=== PATIENT | male | born 1945 | race Hispanic/Latino ===

== ENCOUNTER 2019-11-13 15:19 | Observation (INO) | payer OTHER ==
--- OUTSIDE RECORDS SUMMARY | 2019-11-13 15:21 | XMS REPORT ---
:1945 Author Organization [facility] Address [address] [place] [address] Care Team Providers Name Role Phone TASHA LYLE Unavailable Unavailable Problems This patient has no known problems. Allergies, Adverse Reactions, Alerts This patient has no known allergies or adverse reactions. Medications This patient has no known medications. Results Test Description Test Time Test Comments Text Results Atomic Results Result Comments POCT-GLUCOSE METER 2017-11-21 11:29:00 Test Item Value Reference Range Comments POC-GLUCOSE METER (BEAKER) (test 325 mg/dL 70-110 TESTED AT [facility] [address], [place] wpgj=[id number]) [facility] [id number] POCT-GLUCOSE [id number] 07:37:00 Test Item Value Reference Range Comments POC-GLUCOSE METER (BEAKER) 134 mg/dL 70-110 TESTED AT [facility] [address] [place] (test fwit=2764) [facility] [address] [id number] 04:53:00 Test Item Value Reference Range Comments BLOOD UREA NITROGEN (BEAKER) (test grxj=527) 40 mg/dL 7-21 [id number] 04:53:00 Test Item Value Reference Range Comments SODIUM (BEAKER) (test pude=872) 138 meq/L 136-145 POTASSIUM (BEAKER) (test vjzq=628) 5.0 meq/L 3.5-5.1 CHLORIDE (BEAKER) (test gchd=563) 106 meq/L 98-107 CO2 (BEAKER) (test mybq=978) 23 meq/L 22-29 [id number] 04:53:00 Test Item Value Reference Range Comments CREATININE (BEAKER) (test 1.81 mg/dL 0.57-1.25 askb=255) EGFR (BEAKER) (test 37 mL/min/1.73 sq m ESTIMATED GFR IS NOT xbtm=3988) ACCURATE CREATININE CLEARANCE IN PREDICTING GLOMERULAR FILTRATION RATE. ESTIMATED GFR IS NOT APPLICABLE FOR DIALYSIS PATIENTS. POCT-GLUCOSE [id number] 22:29:00 Test Item Value Reference Range Comments POC-GLUCOSE METER ([facility]) 156 mg/dL 70-110 TESTED AT [address] (test giix=0827) [place] [address] HEMOGLOBIN AND [id number] 18:49:00 Test Item Value Reference Range Comments HEMOGLOBIN ([facility]) (test bktd=608) 10.4 GM/DL 13.7-17.5 HEMATOCRIT ([facility]) (test tsiy=200) 32.1 % 40.1-51.0 POCT-GLUCOSE [id number] 16:14:00 Test Item Value Reference Range Comments POC-GLUCOSE METER ([facility]) 167 mg/dL 70-110 TESTED AT [address] (test tlns=2371) [place] [address] [id number] 14:38:00 Test Item Value Reference Range Comments ACTIVATED CLOTTING TIME 164 sec TESTED AT [address] ([facility]) (test lyue=271) [place] [address] [id number] 13:42:00 Test Item Value Reference Range Comments ACTIVATED CLOTTING TIME 169 sec TESTED AT [address] ([facility]) (test szhy=142) [place] [address] [id number] 12:54:00 Test Item Value Reference Range Comments ACTIVATED CLOTTING TIME 307 sec TESTED AT [address] ([facility]) (test nmnr=589) [place] [address] [id number] 12:54:00 Test Item Value Reference Range Comments ACTIVATED CLOTTING TIME 312 sec TESTED AT [address] ([facility]) (test jbey=521) [place] [address] [id number] 11:45:00 Test Item Value Reference Range Comments ACTIVATED CLOTTING TIME 301 sec TESTED AT [address] ([facility]) (test vscd=998) [place] [address] [id number] 11:45:00 Test Item Value Reference Range Comments ACTIVATED CLOTTING TIME 307 sec TESTED AT [address] ([facility]) (test ynjk=717) [place] [address] [id number] 11:45:00 Test Item Value Reference Range Comments ACTIVATED CLOTTING TIME 301 sec TESTED AT [place] [address] [facility] (BEAKER) (test cbax=327) [place] [id number] 11:45:00 Test Item Value Reference Range Comments ACTIVATED CLOTTING TIME 312 sec TESTED AT [place] [address] [facility] (BEAKER) (test skcl=687) [place] [address] [id number] 11:45:00 Test Item Value Reference Range Comments ACTIVATED CLOTTING TIME 268 sec TESTED AT [address] (BEAKER) (test zzjk=350) [place] [address] [id number] 11:45:00 Test Item Value Reference Range Comments ACTIVATED CLOTTING TIME 202 sec TESTED AT [address] (BEAKER) (test psvj=956) [place] [address] PROTHROMBIN [id number] 06:50:00 Test Item Value Reference Range Comments PROTIME ([facility]) (test ende=372) 13.8 seconds 11.7-14.7 INR ([facility]) (test hosx=515) 1.1 <=5.9 RECOMMENDED COUMADIN/WARFARIN INR THERAPY RANGESSTANDARD DOSE: 2.0 - 3.0 Includes: PROPHYLAXIS forvenous thrombosis, systemic embolization; TREATMENT for venous thrombosis and/or pulmonary embolus.HIGH RISK: Target INR is 2.5-3.5 for patients with mechanical heart valves.[id number] 06:50:00 Test Item Value Reference Range Comments PARTIAL THROMBOPLASTIN TIME (BEAKER) (test 28.6 seconds 22.5-36.0 otfs=451) COMPREHENSIVE METABOLIC [id number] 06:45:00 Test Item Value Reference Range Comments TOTAL PROTEIN (BEAKER) 7.8 gm/dL 6.0-8.3 (test pyla=794) ALBUMIN (BEAKER) (test 4.0 g/dL 3.5-5.0 zdrw=9987) ALKALINE PHOSPHATASE 122 U/L 40-150 (BEAKER) (test apwz=682) BILIRUBIN TOTAL (BEAKER) 0.4 mg/dL 0.2-1.2 (test kauo=803) SODIUM (BEAKER) (test 138 meq/L 136-145 rpts=523) POTASSIUM (BEAKER) (test 5.4 meq/L 3.5-5.1 ykqg=149) CHLORIDE (BEAKER) (test 100 meq/L 98-107 tvix=263) CO2 (BEAKER) (test 27 meq/L 22-29 rvom=644) BLOOD UREA NITROGEN 55 mg/dL 7-21 (BEAKER) (test fhxh=813) CREATININE (BEAKER) (test 2.39 mg/dL 0.57-1.25 ibty=514) GLUCOSE RANDOM (BEAKER) 252 mg/dL 70-105 (test ufld=421) CALCIUM (BEAKER) (test 9.7 mg/dL 8.4-10.2 clza=432) AST (SGOT) (BEAKER) (test 19 U/L 5-34 tvfp=685) ALT (SGPT) (BEAKER) (test 25 U/L 6-55 snng=594) EGFR (BEAKER) (test 27 mL/min/1.73 sq m ESTIMATED GFR IS NOT jsqy=3290) ACCURATE CREATININE CLEARANCE IN PREDICTING GLOMERULAR FILTRATION RATE. ESTIMATED GFR IS NOT APPLICABLE FOR DIALYSIS PATIENTS. [id number] 06:44:00 Test Item Value Reference Range Comments MAGNESIUM (BEAKER) (test kifs=147) 2.4 mg/dL 1.6-2.6 CBC W/PLT COUNT & AUTO [id number] 06:40:00 Test Item Value Reference Range Comments WHITE BLOOD CELL COUNT (BEAKER) (test ojdh=419) 8.0 K/ L 3.5-10.5 RED BLOOD CELL COUNT (BEAKER) (test cysy=626) 3.66 M/ L 4.63-6.08 HEMOGLOBIN (BEAKER) (test urox=562) 11.1 GM/DL 13.7-17.5 HEMATOCRIT (BEAKER) (test ucqv=231) 34.1 % 40.1-51.0 MEAN CORPUSCULAR VOLUME (BEAKER) (test tdbs=224) 93.2 fL 79.0-92.2 MEAN CORPUSCULAR HEMOGLOBIN (BEAKER) (test 30.3 pg 25.7-32.2 rtuy=030) MEAN CORPUSCULAR HEMOGLOBIN CONC (BEAKER) (test 32.6 GM/DL 32.3-36.5 ddvx=897) RED CELL DISTRIBUTION WIDTH (BEAKER) (test 14.3 % 11.6-14.4 zpjf=164) PLATELET COUNT (BEAKER) (test fsob=837) 191 K/CU MM 150-450 MEAN PLATELET VOLUME (BEAKER) (test nomy=850) 10.6 fL 9.4-12.4 NUCLEATED RED BLOOD CELLS (BEAKER) (test 0 /100 WBC 0-0 iimy=575) NEUTROPHILS RELATIVE PERCENT (BEAKER) (test 56 % mtul=324) LYMPHOCYTES RELATIVE PERCENT (BEAKER) (test 35 % dwgz=600) MONOCYTES RELATIVE PERCENT (BEAKER) (test 7 % axvk=102) EOSINOPHILS RELATIVE PERCENT (BEAKER) (test 1 % vzey=045) BASOPHILS RELATIVE PERCENT (BEAKER) (test 1 % imgm=485) NEUTROPHILS ABSOLUTE COUNT (BEAKER) (test 4.47 K/ L 1.78-5.38 ziil=650) LYMPHOCYTES ABSOLUTE COUNT (BEAKER) (test 2.82 K/ L 1.32-3.57 emtg=044) MONOCYTES ABSOLUTE COUNT (BEAKER) (test 0.54 K/ L 0.30-0.82 bruz=067) EOSINOPHILS ABSOLUTE COUNT (BEAKER) (test 0.09 K/ L 0.04-0.54 pzsa=011) BASOPHILS ABSOLUTE COUNT (BEAKER) (test 0.04 K/ L 0.01-0.08 modv=252) IMMATURE GRANULOCYTES-RELATIVE PERCENT (BEAKER) 1 % 0-1 (test kmto=0216)
[2019-11-13 16:01] LABS: Absolute Lymphocytes (CBC) 1.9 K/uL (0.7-4.9); Basophils % 0.4 % (0-1.3); Hematocrit 34.1 % (39.6-49.0); Lymphocytes % 30.2 % (15.3-44.8); MPV 8.5 fL (7.6-11.3); RBC Red Blood Cell Count 3.87 M/uL (4.33-5.43)
[2019-11-13 16:06] LABS: Protime INR 1.08
[2019-11-13 16:23] LABS: ALT/SGPT 17 U/L (12-78); AST/SGOT 18 U/L (15-37); Albumin 2.4 g/dL (3.4-5.0); Alkaline Phosphatase 159 U/L (45-117); BUN Blood Urea Nitrogen 27 mg/dL (7-18); Bicarbonate 23 mmol/L (21-32); Bilirubin Direct 0.1 mg/dL (0-0.2); Bilirubin Total 0.4 mg/dL (0.2-1.0); Glucose Level 184 mg/dL (74-106); NT PRO-BNP 10828 pg/mL (<125); Potassium 4.2 mmol/L (3.5-5.1); Protein, Total 6.8 g/dL (6.4-8.2); Sodium Level 139 mmol/L (136-145); Troponin (Emerg Dept Use Only) < 0.02 ng/mL (0.0-0.045)
--- NOTE | 2019-11-13 16:25 | RAD REPORT ---
EXAM DESCRIPTION: RAD - Chest Single View - 11/13/2019 4:04 pm CLINICAL HISTORY: Pneumonia, Possible defibrillation COMPARISON: November 07 TECHNIQUE: AP portable chest image was obtained 11/13/2019 4:04 pm . FINDINGS: Lung volumes are low. Bibasilar interstitial and alveolar opacities are still present. Rig ht costophrenic angle blunting has developed. Heart size is normal. Vasculature is mildly prominent. No measurable pleural effusion and no pneumothorax. No acute bony abnormality seen. No acute aortic f inding. Left subclavian Port-A-Cath is in place. Pacemaker/defibrillator in place on the right. IMPRESSION: Bibasilar pneumonia pattern similar to November 07 Increase in vasculature and overall lung markings could indicate a failure or volume overload compone nt.
--- NOTE | 2019-11-13 17:16 | EDPHYS ---
Physician Documentation [facility] Name: Rick Zheng Age: 74 yrs Sex: Male : 1945 Arrival Date: 11/13/2019 Time: 15:21 Bed 2 Private MD: ELIZABETH Physician Bin Garza HPI: 11/12 15:36 This 74 yrs old Male presents to ER via Wheelchair with complaints of Defib pm1 Problem. 15:36 Onset: at 03:00, Patient felt sensation of a shock to his left chest. Patient believes pm1 that his defibrillator fired off one time while he was sleeping. Associated signs and symptoms: Pertinent positives: cough, shortness of breath, for the past two weeks. Was diagnosed with pneumonia by his PCP and prescribed levaquin, Pertinent negatives: abdominal pain, headache, lightheadedness, nausea, near syncope, palpitations, vomiting, current chest pain. Modifying factors: The symptoms are alleviated by nothing. the symptoms are aggravated by nothing. The patient has not experienced similar symptoms in the past. The patient has been recently seen by a physician: the patient's primary care provider, for cough and shortness of breath and diagnosed with pneumonia after chest xray. Historical: - Allergies: 15:38 No Known Allergies; sv - Home Meds: 15:38 Levaquin 500 mg Oral tab 1 tab once daily [Active]; torsemide 20 mg oral tab 1 tab once sv daily [Active]; amiodarone 200 mg Oral tab 1 tab once daily [Active]; spironolactone 25 mg Oral tab 1 tab once daily [Active]; atorvastatin 40 mg oral tab 1 tab once daily [Active]; aspirin 81 mg Oral TbEC 1 tab once daily [Active]; lisinopril 5 mg Oral tab 1 tab once daily [Active]; metoprolol succinate 100 mg oral Tb24 1 tab once daily [Active]; 16:00 chemotherapy [Active]; sv - PMHx: 15:38 CVA; Myocardial infarction; sv 16:00 Pancreatic and stomach cancer; sv - PSHx: 15:38 Pacemaker; Triple bypass; Heart stents; sv - Immunization history:: Adult Immunizations up to date. - Social history:: Smoking status: Patient denies any tobacco usage or history of. ROS: 16:00 Constitutional: Negative for fever, chills, and weight loss, Eyes: Negative for injury, pm1 pain, redness, and discharge, ENT: Negative for injury, pain, and discharge, Neck: Negative for injury, pain, and swelling, Abdomen/GI: Negative for abdominal pain, nausea, vomiting, diarrhea, and constipation, Back: Negative for injury and pain. 16:00 MS/Extremity: Negative for injury and deformity, Skin: Negative for injury, rash, and discoloration, Neuro: Negative for headache, weakness, numbness, tingling, and seizure. 16:00 Cardiovascular: Positive for shock from defibrillator, Negative for chest pain, edema, orthopnea, palpitations. 16:00 Respiratory: Positive for cough, shortness of breath. Exam: 16:00 Constitutional: This is a well developed, well nourished patient who is awake, alert, pm1 and in no acute distress. Head/Face: Normocephalic, atraumatic. Neck: Trachea midline, no thyromegaly or masses palpated, and no cervical lymphadenopathy. Supple, full range of motion without nuchal rigidity, or vertebral point tenderness. No Meningismus. Chest/axilla: Normal chest wall appearance and motion. Nontender with no deformity. No lesions are appreciated. Cardiovascular: Regular rate and rhythm with a normal S1 and S2. No gallops, murmurs, or rubs. No pulse deficits. Respiratory: Lungs have equal breath sounds bilaterally, clear to auscultation and percussion. No rales, rhonchi or wheezes noted. No increased work of breathing, no retractions or nasal flaring. Abdomen/GI: Soft, non-tender, with normal bowel sounds. No distension or tympany. No guarding or rebound. No evidence of tenderness throughout. Back: No spinal tenderness. No costovertebral tenderness. Full range of motion. Skin: Warm, dry with normal turgor. Normal color with no rashes, no lesions, and no evidence of cellulitis. MS/ Extremity: Pulses equal, no cyanosis. Neurovascular intact. Full, normal range of motion. 16:00 Neuro: Orientation: is normal, Mentation: is normal, Motor: is normal. Vital Signs: 15:34 BP 151 / 77; Pulse 80; Resp 16; Temp 98; Pulse Ox 95% ; Pain 0/10; sv 16:01 Pulse Ox 91% on R/A; sv 16:03 BP 134 / 57; Pulse 80; Resp 16; Pulse Ox 95% on 3 lpm NC; sv 16:45 BP 119 / 49; Pulse 80; Resp 16; Pulse Ox 95% on 3 lpm NC; sv 17:30 BP 128 / 62; Pulse 72; Resp 15; Pulse Ox 99% on 3 lpm NC; hb 18:30 BP 142 / 63; Pulse 64; Resp 17; Pulse Ox 98% on 3 lpm NC; hb 19:14 BP 114 / 69; Pulse 80; Resp 17; Temp 98.3; Pulse Ox 99% on 3 lpm NC; Pain 0/10; rr5 20:10 BP 141 / 70; Pulse 78; Resp 16; Pulse Ox 99% on 3 lpm NC; rr5 16:01 Placed on O2 \T\ 3L per NC. sv MDM: 15:29 Patient medically screened. rajeev 16:00 Data reviewed: vital signs. pm1 17:00 Counseling: I had a detailed discussion with the patient and/or guardian regarding: the pm1 historical points, exam findings, and any diagnostic results supporting the discharge/admit diagnosis, lab results, radiology results, the need for further work-up and treatment in the hospital. 17:11 Physician consultation: Ajay Newman was called at 17:12, was contacted at 17:12, pm1 regarding admission, patient's condition, and will see patient in ED. 17:16 ED course: Patient's family members determined that his pacemaker/defibrillator is pm1 [employer] brand. 17:54 ED course: [employer] sales promotion representative called. Said he will come tomorrow morning pm1 to interrogate the defibrillator since the patient has been admitted. 11/12 15:36 Order name: Basic Metabolic Panel; Complete Time: 16:24 pm1 11/12 15:36 Order name: CBC with Diff; Complete Time: 16:16 pm1 11/12 15:36 Order name: LFT's; Complete Time: 16:24 pm1 11/12 15:36 Order name: Magnesium; Complete Time: 16:24 pm1 11/12 15:36 Order name: NT PRO-BNP; Complete Time: 16:24 pm1 11/12 15:36 Order name: PT-INR; Complete Time: 16:24 pm1 11/12 15:36 Order name: Troponin (emerg Dept Use Only); Complete Time: 16:24 pm1 11/12 15:36 Order name: XRAY Chest (1 view); Complete Time: 16:28 pm1 11/12 15:36 Order name: EKG; Complete Time: 15:37 pm1 11/12 15:36 Order name: Cardiac monitoring; Complete Time: 15:38 pm1 11/12 15:36 Order name: EKG - Nurse/Tech; Complete Time: 16:05 pm1 11/12 15:36 Order name: IV Saline Lock; Complete Time: 15:38 pm1 11/12 15:36 Order name: Labs collected and sent; Complete Time: 16:05 pm1 11/12 15:38 Order name: Flu; Complete Time: 16:24 pm1 11/12 15:36 Order name: O2 Per Protocol; Complete Time: 15:38 pm1 11/12 15:36 Order name: O2 Sat Monitoring; Complete Time: 15:38 pm1 Administered Medications: No medications were administered Disposition: 11/13 09:44 Co-signature as Attending Physician, Bin Garza MD I agree with the assessment and [facility] plan of care. Disposition: 11/13/19 17:15 Hospitalization ordered by Ajay Newman for Observation. Preliminary diagnosis are Encounter for adjustment and management of automatic implantable cardiac defibrillator - Defibrillator discharge, Pneumonia, unspecified organism. - Bed requested for Telemetry/MedSurg (observation). - Status is Observation. rr5 - Condition is Stable. - Problem is new. - Symptoms have improved. Signatures: Dispatcher [employer] EDDorcas Eng RN RN sv Woody, Diana, RN RN dw Anderson, Corey, MD MD cha Marinas, Patrick, LIVESTOCK LABORER LIVESTOCK LABORER pm1 Ralph Carter RN RN rr5 Corrections: (The following items were deleted from the chart) 11/12 19: 17:15 Hospitalization Ordered by Ajay Newman for Observation. Preliminary diagnosis dw is Encounter for adjustment and management of automatic implantable cardiac defibrillator - Defibrillator dischargePneumonia, unspecified organism. Bed requested for Telemetry/MedSurg (observation). Status is Observation. Condition is Stable. Problem is new. Symptoms have improved. pm1 20:21 19:07 11/13/2019 17:15 Hospitalization Ordered by Ajay Newman for Observation. rr5 Preliminary diagnosis is Encounter for adjustment and management of automatic implantable cardiac defibrillator - Defibrillator dischargePneumonia, unspecified organism. Bed requested for Telemetry/MedSurg (observation). Status is Observation. Condition is Stable. Problem is new. Symptoms have improved. dw
--- NOTE | 2019-11-13 17:16 | ER ---
Nurse's Notes [facility] Name: Rick Zheng Age: 74 yrs Sex: Male : 1945 Arrival Date: 11/13/2019 Time: 15:21 Bed 2 Private MD: Diagnosis: Pneumonia, unspecified organism;Encounter for adjustment and management of automatic implantable cardiac defibrillator-Defibrillator discharge Presentation: 11/12 15:34 Chief complaint: Patient states: "I got shocked by this box (pointing to the pacemaker sv in his right chest wall) this morning." Reports generalized weakness and was dx w/ pneumonia about 4 days ago and has been on abx. Coronavirus screen: The patient has NOT traveled to a country currently being monitored by the [facility] [place] 2[place] within the last 14 days. Proceed with normal triage procedures. The patient has NOT had contact with any known and/or suspected case of coronavirus. Proceed with normal triage procedures. Ebola Screen: Patient negative for fever greater than or equal to 101.5 degrees Fahrenheit, and additional compatible Ebola Virus Disease symptoms Patient denies exposure to infectious person. Patient denies travel to an Ebola-affected area in the 21 days before illness onset. No symptoms or risks identified at this time. Initial Sepsis Screen: Does the patient meet any 2 criteria? No. Patient's initial sepsis screen is negative. Does the patient have a suspected source of infection? No. Patient's initial sepsis screen is negative. Risk Assessment: Do you want to hurt yourself or someone else? Patient reports no desire to harm self or others. 15:34 Method Of Arrival: Wheelchair sv 15:34 Acuity: KELVIN 3 sv 15:45 Onset of symptoms was November 13, 2019. sv Triage Assessment: 15:34 General: Appears in no apparent distress. comfortable, well developed, Behavior is sv calm, cooperative, appropriate for age. Pain: Denies pain. Neuro: Level of Consciousness is awake, alert, obeys commands, Oriented to person, place, time, situation, Moves all extremities. Full function Gait is steady, Speech is normal, Reports weakness. Cardiovascular: Patient's skin is warm and dry. Pulses are palpable in right radial artery and left radial artery Rhythm is A-V sequential pacer with capture. Respiratory: Airway is patent Respiratory effort is even, unlabored, Respiratory pattern is regular, symmetrical. Derm: Skin is intact, Skin is pink, warm \\T\\ dry. Musculoskeletal: Range of motion: intact in all extremities. Historical: - Allergies: 15:38 No Known Allergies; sv - Home Meds: 15:38 Levaquin 500 mg Oral tab 1 tab once daily [Active]; torsemide 20 mg oral tab 1 tab once sv daily [Active]; amiodarone 200 mg Oral tab 1 tab once daily [Active]; spironolactone 25 mg Oral tab 1 tab once daily [Active]; atorvastatin 40 mg oral tab 1 tab once daily [Active]; aspirin 81 mg Oral TbEC 1 tab once daily [Active]; lisinopril 5 mg Oral tab 1 tab once daily [Active]; metoprolol succinate 100 mg oral Tb24 1 tab once daily [Active]; 16:00 chemotherapy [Active]; sv - PMHx: 15:38 CVA; Myocardial infarction; sv 16:00 Pancreatic and stomach cancer; sv - PSHx: 15:38 Pacemaker; Triple bypass; Heart stents; sv - Immunization history:: Adult Immunizations up to date. - Social history:: Smoking status: Patient denies any tobacco usage or history of. Screenin:00 Abuse screen: Denies threats or abuse. Denies injuries from another. Nutritional sv screening: No deficits noted. Tuberculosis screening: No symptoms or risk factors identified. Fall Risk None identified. Assessment: 16:03 Reassessment: Patient appears in no apparent distress at this time. No changes from previously documented assessment. Patient and/or family updated on plan of care and expected duration. Pain level reassessed. Patient is alert, oriented x 3, equal unlabored respirations, skin warm/dry/pink. 17:10 Reassessment: Son was able to get the device that is for his pacemaker. Celiro latitude communicator is the device; model 6290. 17:14 Reassessment: Spoke with Theresa with [employer] at and she sv stated that she would page out a sales representative livestock. 17:32 Reassessment: Dr Newman at the bedside. sv 18:47 Reassessment: Patient appears in no apparent distress at this time. Patient and/or hb family updated on plan of care and expected duration. Pain level reassessed. Patient is alert, oriented x 3, equal unlabored respirations, skin warm/dry/pink. Awaiting room assignment at this time. Pt is resting with eyes closed, easily arouses to verbal stimuli. VSS. Family remains at bedside. 19:30 General: Appears in no apparent distress. comfortable, Behavior is calm, cooperative, rr5 appropriate for age, for transfer to room .405 . Pain: Denies pain. Neuro: Level of Consciousness is awake, alert, obeys commands, Oriented to person, place, time, situation, Appropriate for age. Cardiovascular: Denies chest pain, Capillary refill < 3 seconds Patient's skin is warm and dry. Respiratory: Airway is patent Respiratory effort is even, unlabored, Respiratory pattern is regular, symmetrical. GI: No signs and/or symptoms were reported involving the gastrointestinal system. : No signs and/or symptoms were reported regarding the genitourinary system. EENT: No signs and/or symptoms were reported regarding the EENT system. Derm: Skin is intact, is healthy with good turgor, Skin temperature is warm. Musculoskeletal: Circulation, motion, and sensation intact. Capillary refill < 3 seconds. Vital Signs: 15:34 BP 151 / 77; Pulse 80; Resp 16; Temp 98; Pulse Ox 95% ; Pain 0/10; sv 16:01 Pulse Ox 91% on R/A; sv 16:03 BP 134 / 57; Pulse 80; Resp 16; Pulse Ox 95% on 3 lpm NC; sv 16:45 BP 119 / 49; Pulse 80; Resp 16; Pulse Ox 95% on 3 lpm NC; sv 17:30 BP 128 / 62; Pulse 72; Resp 15; Pulse Ox 99% on 3 lpm NC; hb 18:30 BP 142 / 63; Pulse 64; Resp 17; Pulse Ox 98% on 3 lpm NC; hb 19:14 BP 114 / 69; Pulse 80; Resp 17; Temp 98.3; Pulse Ox 99% on 3 lpm NC; Pain 0/10; rr5 20:10 BP 141 / 70; Pulse 78; Resp 16; Pulse Ox 99% on 3 lpm NC; rr5 16:01 Placed on O2 \\T\\ 3L per NC. sv ED Course: 15:21 Patient arrived in ED. rg4 15:29 [facility]. pm1 15:29 Bin Garza MD is Attending Physician. pm1 15:33 Duque, Princess, RN is Primary Nurse. ph 15:34 Dorcas Amador, RN is Primary Nurse. sv 15:34 Arm band placed on Patient placed in an exam room, on a stretcher, on bus driver/monitor, sv on pulse oximetry. 15:35 Triage completed. sv 15:45 Patient has correct armband on for positive identification. Placed in gown. Bed in low sv position. Call light in reach. Adult w/ patient. monitor technician on. Pulse ox on. NIBP on. Door closed. Head of bed elevated. 15:52 Initial lab(s) drawn, by me, sent to lab. Accessed Port-a-Cath. using accessed w/ # 20 hb [place] needle, ,sterile technique, per hospital protocol. Good blood return. Flushes easily. 16:05 XRAY Chest (1 view) In Process Unspecified. EDMS 16:05 XRAY Chest (1 view) Sent. sv 17:02 Awaiting re-evaluation by ER provider. sv 17:13 Ajay Newman is Hospitalizing Provider. pm1 19:11 Report given to Dominic SEBASTIAN and Ralph SEBASTIAN. sv 19:12 Primary Nurse role handed off by Dorcas Amador, ROMULO sv 19:14 Ralph Carter, ROMULO is Primary Nurse. rr5 19:24 No provider procedures requiring assistance completed. Patient admitted, IV remains in rr5 place. intact, No redness/swelling at site. Administered Medications: No medications were administered Outcome: 17:15 Decision to Hospitalize by Provider. pm1 19:53 Admitted to Tele accompanied by tech, via stretcher, room 405, with chart, Report rr5 called to coreen 19:53 Condition: stable 19:53 Instructed on the need for admit. 20:21 Patient left the ED. rr5 Signatures: Dispatcher [employer] EDMS Dorcas Amador, ROMULO SEBASTIAN Princess Duque, RN RN ph Jose Pérez, DATA ENTRY OPERATOR DATA ENTRY OPERATOR pm1 Hedy Vargas RN RN hb Garcia, Rubi rg4 Ralph Carter, ROMULO RN rr5 Corrections: (The following items were deleted from the chart) 16:03 16:01 Pulse Ox 91% RA; Placed on O2 \\T\\ 2L per NC. ; sv sv 17:21 17:14 Reassessment: Spoke with Theresa with [employer] and she stated that she sv would page out a sales representative livestock. sv
--- NOTE | 2019-11-13 18:08 | P.HP ---
Certification for Inpatient Patient admitted to: Observation With expected LOS: <2 Midnights Practitioner: I am a practitioner with admitting privileges, knowledge of patient current condition, hospital course, and medical plan of care. Services: Services provided to patient in accordance with Admission requirements found in Title 42 Section 412.3 of the Code of Federal Regulations Patient History Date of Service: 11/13/19 Reason for admission: ICD firing History of Present Illness: 74-year-old man with a history of coronary artery disease status post CABG and multiple stents, history of congestive heart failure with AICD implant and diabetes mellitus type 2 presented to the ED because he felt his AICD fired around 3:00 a.m. this morning. The patient states his AICD fired a couple of months ago. He also reports chest pain, intermittent in nature and shortness of breath. Patient recently followed with Dr. Browne. Patient tells me he recently had an echocardiogram done. He is not able to provide his ejection fraction. He was also recently treated for pneumonia. His EKG in the ED shows atrial paced rhythm. Initial troponin is negative. BNP is markedly elevated. Chest x-ray shows bibasilar pneumonia pattern and some evidence of vascular congestion. Patient is placed under observation for further evaluation. - Past Medical/Surgical History -: Congestive heart failure -: Coronary artery disease -: DM type 2 -: CABG -: Cardiac catheterization -: Bowel surgery for bowel perforation and fistula - Family History Father -: Heart disease Sister -: Cancer - Social History Smoking Status: Former smoker Alcohol use: No CD- Drugs: No Place of Residence: Home Review of Systems Other: Except as documented, all other systems reviewed and negative. Physical Examination - Physical Exam General: Alert, In no apparent distress, Oriented x3 HEENT: Normocephalic, Mucous membr. moist/pink, Sclerae nonicteric Neck: Supple, JVD not distended Respiratory: Normal air movement, Crackles/rales (Bibasilar rales) Cardiovascular: Regular rate/rhythm, Normal S1 S2, Edema (Trace bilateral lower extremity pitting edema) Capillary refill: <2 Seconds Gastrointestinal: Normal bowel sounds, Soft and benign, Non-distended, No tenderness Musculoskeletal: No swelling, No erythema Integumentary: No rashes Neurological: Normal speech, Normal strength at 5/5 x4 extr, Cranial nerves 3- 12 intact - Studies Laboratory Data (last 24 hrs) 11/13/19 15:45: PT 12.7 H, INR 1.08 11/13/19 15:45: WBC 6.4, Hgb 11.2 L, Hct 34.1 L, Plt Count 164 11/13/19 15:45: Sodium 139, Potassium 4.2, BUN 27 H, Creatinine 1.38 H, Glucose 184 H, Magnesium 2.0, Total Bilirubin 0.4, AST 18, ALT 17, Alkaline Phosphatase 159 H Microbiology Data (last 24 hrs): 11/13/19 15:49 Nasopharnyx Influenza Type A Antigen Screen - Final 11/13/19 15:49 Nasopharnyx Influenza Type B Antigen Screen - Final Assessment and Plan - Problems (Diagnosis) (1) ICD (implantable cardioverter-defibrillator) discharge Current Visit: Yes Status: Acute (2) Congestive heart failure Current Visit: Yes Status: Acute (3) 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 AICD interrogation. Continue antibiotics for pneumonia. Avoid QT prolonging drugs. Cardiology consult. - Advance Directives Does patient have a Living Will: No Does patient have a Durable POA for Healthcare: Yes - Code Status/Comfort Care Code Status Assessed: Yes Code Status: Full Code
[2019-11-13] MEDS ORDERED: FUROSEMIDE 40 MG/4 ML VIAL IV ONE (19:52)
[2019-11-13] MEDS ORDERED: MORPHINE 4 MG/ML SYR IV PRN (19:52)
[2019-11-13] MEDS ORDERED: NITROGLYCERIN 0.4 MG/TAB SL PRN (19:52)
[2019-11-13 20:45] VITALS: BMI 26.2
[2019-11-13] MEDS: INSULIN -REGULAR HUMAN 50 UNIT/0.5 ML ML SQ SCH (21:00)
[2019-11-13] MEDS: METOPROLOL TAR 50 MG TAB PO SCH (21:04)
[2019-11-13] MEDS: AMOX/K CLAV 875 MG TAB PO SCH (21:04)
[2019-11-13 21:48] LABS: Troponin I 0.02 ng/mL (0.0-0.045)
[2019-11-13] MEDS ORDERED: AMIODARONE HCL 200 MG TAB PO SCH (21:52)
--- NOTE | 2019-11-14 06:56 | EKG ---
Test Date: 2019-11-13 Test Time: 15:42:34 Head Scorer: PIPER MEASUREMENT RESULTS: Intervals: Rate: 80 OK: 118 QRSD: 156 QT: 464 QTc: 535 [place]: P: 22 OK: 118 QRS: 68 T: -34 INTERPRETIVE STATEMENTS: Atrial-sensed ventricular-paced rhythm Abnormal ECG No previous ECG available for comparison Electronically Signed On 11-14-19 06:54:51 CDT by Sean Jauregui
[2019-11-14] MEDS: INSULIN -REGULAR HUMAN 50 UNIT/0.5 ML ML SQ SCH ×2 (07:30→11:30)
[2019-11-14] MEDS ORDERED: INFLUENZA VACCINE (for 3y+) 0.5 ML DOSE IMVAC ONE (08:00)
[2019-11-14 08:54] VITALS: O2SAT 93
[2019-11-14] MEDS ORDERED: ASPIRIN EC 81 MG TAB PO SCH (09:00)
[2019-11-14] MEDS ORDERED: VALSARTAN 80 MG TAB PO SCH (09:00)
[2019-11-14] MEDS ORDERED: AMIODARONE HCL 200 MG TAB PO SCH (09:00)
[2019-11-14] MEDS ORDERED: FUROSEMIDE 40 MG/4 ML VIAL IV SCH (09:00)
[2019-11-14] MEDS ORDERED: SPIRONOLACTONE 25 MG TABLET PO SCH (09:00)
[2019-11-14] MEDS: AMOX/K CLAV 875 MG TAB PO SCH (09:27)
[2019-11-14] MEDS: METOPROLOL TAR 50 MG TAB PO SCH (09:38)
--- NOTE | 2019-11-14 10:33 | P.DS ---
Admission Date: 11/13/19 Discharge Date: 11/14/19 Primary Care Provider: None Reason for Admission: ICD firing Consultations: Dr. 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 Hospital Course: Patient was evaluated in the hospital and ICD was interrogated without acute findings of discharge. Dr. Browne was consulted and saw patient. No pneumonia is suspected. HF present. As such, recommends starting patient on Diovan and then converting to Entresto in office with f/u. Patient feeling much better today. No other ICD like discharges felt by patient. Eating and drinking well. Able to ambulate and without any other current problems. Labs have remained stable. Patient will need FM follow up and Renal f/u. Will d/c with f/u instructions and give patient names to f/u. <Mike Bales - Last Filed: 11/14/19 10:27> Admission Date: 11/13/19 Discharge Date: 11/14/19 Procedures: Medical problem list: Chest pain secondary to suspected AICD firing complicated with history of CAD with prior CABG Chronic systolic CHF Hypertension Elevated blood sugar suspect diabetes mellitus type 2 Chronic renal failure stage 3 Hospital Course: Case discussed with MATEO Stoddard. I agree with plan of care and discharge. Patient presented with chest pain. Patient felt his AICD had discharged. This was interrogated. Patient also seen by Cardiology. Interrogation shows no discharge. Patient likely with phantom discharge. Patient stable at this time. Patient with underlying chronic systolic CHF and CAD with prior CABG. He is new to the area. Medications have been adjusted. Patient no longer taking lisinopril. Patient will be sent home on Diovan. This will be converted to Entresto for CHF once the patient establish care with Cardiology as an outpatient. Patient will continue with amiodarone and other medications. Patient will continue with a 1500 cc per day fluid restriction and low-salt diet. Patient will need to monitor his weight daily. If his weight increases by more than 5 lb further adjustment in his medication may be required. This can be done with the help of his maintenance pipefitter. Patient had elevated blood sugar. Will recommend patient to be further evaluated by a PCP which he plans to establish care with. Will recommend A1c. If the patient has diabetes, patient will need to be started on medication. This can be done with the help of his PCP. Patient with chronic renal disease stage III. This has remained stable. Patient may require nephrology evaluation as an outpatient especially since the patient will likely start Entresto as an outpatient with Cardiology. <Kai Frost - Last Filed: 11/14/19 17:51> Disposition: ROUTINE DISCHARGE Discharge Condition: GOOD Vital Signs/Physical Exam: Temp Pulse Resp BP Pulse Ox 97.2 F 80 18 146/69 H 97 11/14/19 08:00 11/14/19 09:38 11/14/19 08:00 11/14/19 09:38 11/14/19 08:00 General: Alert, In no apparent distress, Oriented x3 HEENT: Normocephalic, PERRLA, Mucous membr. moist/pink, EOMI Neck: Supple, 2+ carotid pulse no bruit Respiratory: Clear to auscultation bilaterally, Normal air movement Cardiovascular: No edema, Normal pulses, Regular rate/rhythm Capillary refill: <2 Seconds Gastrointestinal: Normal bowel sounds, Soft and benign, Non-distended, No ascites, No tenderness, No masses, No rebound, No guarding Musculoskeletal: No clubbing, No swelling, No contractures, No erythema, No tenderness, No warmth Integumentary: No rashes, No breakdown, No significant lesion, No tenderness/ swelling, No erythema, No warmth, No cyanosis Neurological: Normal speech, Normal strength at 5/5 x4 extr, Normal tone, Sensation intact, Cranial nerves 3-12 intact, Normal reflexes 2+, Normal affect Lymphatics: No axilla or inguinal lymphadenopathy Laboratory Data at Discharge: WBC 6.4 K/uL (4.3-10.9) 11/13/19 15:45 Hgb 11.2 g/dL (13.6-17.9) L 11/13/19 15:45 Hct 34.1 % (39.6-49.0) L 11/13/19 15:45 Plt Count 164 K/uL (152-406) 11/13/19 15:45 PT 12.7 SECONDS (9.5-12.5) H 11/13/19 15:45 INR 1.08 11/13/19 15:45 Sodium 139 mmol/L (136-145) 11/13/19 15:45 Potassium 4.2 mmol/L (3.5-5.1) 11/13/19 15:45 BUN 27 mg/dL (7-18) H 11/13/19 15:45 Creatinine 1.38 mg/dL (0.55-1.3) H 11/13/19 15:45 Glucose 184 mg/dL (74-106) H 11/13/19 15:45 Magnesium 2.0 mg/dL (1.8-2.4) 11/13/19 15:45 Total Bilirubin 0.4 mg/dL (0.2-1.0) 11/13/19 15:45 AST 18 U/L (15-37) 11/13/19 15:45 ALT 17 U/L (12-78) 11/13/19 15:45 Alkaline Phosphatase 159 U/L (45-117) H 11/13/19 15:45 Troponin I 0.02 ng/mL (0.0-0.045) 11/14/19 01:21 Triglycerides 92 mg/dL (<150) 11/13/19 21:15 Cholesterol 106 mg/dL (<200) 11/13/19 21:15 HDL Cholesterol 37 mg/dL (40-60) L 11/13/19 21:15 Cholesterol/HDL Ratio 2.86 11/13/19 21:15 <Mike Bales - Last Filed: 11/14/19 10:27> Vital Signs/Physical Exam: Temp Pulse Resp BP Pulse Ox 96.7 F L 80 18 109/55 L 96 11/14/19 12:00 11/14/19 12:00 11/14/19 12:00 11/14/19 12:00 11/14/19 12:00 Laboratory Data at Discharge: WBC 6.4 K/uL (4.3-10.9) 11/13/19 15:45 Hgb 11.2 g/dL (13.6-17.9) L 11/13/19 15:45 Hct 34.1 % (39.6-49.0) L 11/13/19 15:45 Plt Count 164 K/uL (152-406) 11/13/19 15:45 PT 12.7 SECONDS (9.5-12.5) H 11/13/19 15:45 INR 1.08 11/13/19 15:45 Sodium 139 mmol/L (136-145) 11/13/19 15:45 Potassium 4.2 mmol/L (3.5-5.1) 11/13/19 15:45 BUN 27 mg/dL (7-18) H 11/13/19 15:45 Creatinine 1.38 mg/dL (0.55-1.3) H 11/13/19 15:45 Glucose 184 mg/dL (74-106) H 11/13/19 15:45 Magnesium 2.0 mg/dL (1.8-2.4) 11/13/19 15:45 Total Bilirubin 0.4 mg/dL (0.2-1.0) 11/13/19 15:45 AST 18 U/L (15-37) 11/13/19 15:45 ALT 17 U/L (12-78) 11/13/19 15:45 Alkaline Phosphatase 159 U/L (45-117) H 11/13/19 15:45 Troponin I 0.02 ng/mL (0.0-0.045) 11/14/19 01:21 Triglycerides 92 mg/dL (<150) 11/13/19 21:15 Cholesterol 106 mg/dL (<200) 11/13/19 21:15 HDL Cholesterol 37 mg/dL (40-60) L 11/13/19 21:15 Cholesterol/HDL Ratio 2.86 11/13/19 21:15 <Kai Frost - Last Filed: 11/14/19 17:51> Patient Discharge Instructions: Patient needs to Continue home medications as prescribed. Patient needs to discontinue Lisinopril. Patient will start on Diovan daily. Patient needs to follow up with Dr. Browne in office later this week to start on Entresto for HF. Patient needs to Establish care with Dr. Hernandez if possible upon discharge. Patient needs to f/u with Nephrology.. Either Dr. Ly or Silvia. Patient needs to continue to monitor glucose tightly. If worse or something were to change to come back to ED for further evaluation Diet: ADA Activity: Ad oly Time spent managing pt's care (in minutes): 45 <Mike Bales - Last Filed: 11/14/19 10:27> <Kai Frost - Last Filed: 11/14/19 17:51> Home Medications: Amiodarone HCl [Cordarone*] 200 mg PO DAILY #30 tab 11/14/19 Aspirin 81 mg PO DAILY 11/14/19 Atorvastatin Calcium [Lipitor] 40 mg PO BEDTIME tab 11/14/19 Digoxin [Lanoxin*] 0.125 mg PO DAILY 11/14/19 Levofloxacin [Levaquin] 500 mg PO DAILY 11/14/19 Metoprolol Succinate [Toprol Xl] 100 mg PO DAILY 11/14/19 Metoprolol Tartrate [Lopressor*] 25 mg PO BID tab 11/14/19 Spironolactone [Aldactone*] 50 mg PO DAILY tab 11/14/19 Valsartan [Diovan] 80 mg PO DAILY #20 tablet 11/14/19 New Medications: Amiodarone HCl [Cordarone*] 200 mg PO DAILY #30 tab Valsartan [Diovan] 80 mg PO DAILY #20 tablet Followup: Yadiel Aragon MD [ACTIVE - CAN ADMIT] - Bird Hernandez MD [ACTIVE - CAN ADMIT] - Souleymane Browne MD [ACTIVE - CAN ADMIT] -
--- NOTE | 2019-11-14 11:42 | PN ---
Date of Progress Note: 11/14/2019 Subjective: Mr. Zheng was admitted on 04/14/2020 with what he felt were 2 AICD shocks. The [employer] sales representative came in early this morning and found perfectly normal function of his AICD and biventricular pacemaker without any evidence of VT or ventricular fibrillation. It was thought t hat he had would like all phantom shocks. The patient obviously needs to continue his medical regime n as needed. I would not increase his amiodarone dose. I will keep the same dose. He has an echoca rdiogram pending today. We can wait till that is done before he goes home, but I will make an arrang ement for him to see me in the office in the next 2 to 4 weeks. He will continue the same regimen. KIANA/ANA LAURA Voice ID: [id number] Report ID: [id number]
--- NOTE | 2019-11-14 11:42 | CON ---
Date of Consultation: 11/13/2019 Reason For Consultation: AICD discharge cardiomyopathy. History Of Present Illness: Mr. Zheng is a 74-year-old [place] male. He just to this area from [place] about 3 months ago. He has a history of coronary artery disease, status post CABG, stent, AICD and biventricular pacemaker. ejection fraction. He has a history of CV A and he is on active chemotherapy. Apparently, had 2 AICD discharges that he felt while he was slee ping. They woke him up. He denied any syncope. Denied any chest pain. Denied PND, orthopnea, peda l edema, or palpitations. Past Medical History: As stated above. Allergies: NONE. Review of Systems: Negative. Social History: Negative. Family History: Noncontributory. Medications: At home include aspirin, metoprolol, Lasix, Aldactone, amiodarone, Lipitor, and lisinop ril. Physical Examination: General: He is pleasant, no acute distress. Vital Signs: Stable. He was afebrile. He was in a paced rhythm. HEENT: Negative. Neck: Supple with no bruit. Chest: Clear to auscultation and percussion. Cardiac: Revealed a regular rhythm and rate. No murmurs, gallops, or rubs. Abdomen: Benign. Extremities: Revealed no clubbing, cyanosis, or edema. Neurologic: He was nonfocal. SKIN: Dry and intact. Diagnostic Data: Chest x-ray showed mild volume overload. Creatinine showed it was 1.38. BNP was 1 0,828. Impression And Plan: Patient with a history of coronary artery disease, status post coronary artery bypass grafting, stent, AICD, biventricular pacemaker for what I am assuming to be chronic systolic c ongestive heart failure with 2 AICD shocks. I would like to increase his amiodarone to 400 b.i.d. fo r now. Getting a defibrillator check early in the morning and see what we see before we make any fur ther decisions. Echocardiogram is pending as well. His blood pressure seems to be fairly well contr olled. His dyslipidemia is well controlled. We will continue to follow him. KIANA/ANA LAURA Voice ID: [id number] Report ID: [id number]
--- NOTE | 2019-11-14 11:45 | CON ---
History Of Present Illness: Mr. Zheng is 74-year-old. In 2008, he had coronary bypass surgery. He has depressed ejection fraction. He has a [employer] defibrillator. It was first implanted around 2007, but had a redo in 2018 and his defibrillator has been interrogated this morning, October 292019, and all the parameters are excellent. There is no abnormality of his rhythm. No abnormalit y of the pacemaker leads or its device. No evidence of any ventricular tachycardia and the device di d not shock. I was consulted because the patient thought he had been shocked. 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 He has been bro ught to the hospital. He has been found to have evidence of either congestive heart failure or pneum onia. He does not have a fever. He does not have a distinct pulmonary infiltrate. White cell count is not particularly elevated. His troponins are all normal. He does not have a left shift. His [facility] temperature has been 97.9 and to me the chest x-ray looks like congestive heart failure. [facility] B-natriure[facility] peptide level is elevated over 10,000. The patient says when he ta kes a deep breath, it sometimes makes him cough. Physical Examination: General: He is alert, oriented, pleasant. He is not in distress. Lungs: Reveal basilar crackles. Heart: Reveals regular rate and rhythm. No significant murmur. Abdomen: Soft. Extremities: Trace edema. Distal pulses palpable. Social History: The patient uses no tobacco, remotely he did. Home Medications: Not listed. Assessment And Plan: I think the patient needs to be on higher doses of diuretics, get rid of some o f the pulmonary edema, which was called possible pneumonia by the radiologist. He should continue [facility] outpatient medications according to some other records. He is on torsemide 20 mg once a day, amiod arone 200, spironolactone 25, Lipitor 40, aspirin 81, lisinopril 5, metoprolol 100. I think the patient would be a very good candidate to attempt Entresto instead of lisinopril, so I wi ll stop any GUERO inhibitors, give him Diovan for a few days and then switch him to Entresto, probably as an outpatient he needs to be on a higher dose of diuretics. SH/MODL Voice ID: [id number] Report ID: [id number]
[2019-11-14 13:38] VITALS: BP 109/55; TEMP 96.7
[2019-11-14] MEDS ORDERED: HEPARIN 500 UNIT/5 ML SYR IV PRN (14:12)
--- NOTE | 2019-11-14 14:52 | ECHO ---
HEIGHT: 5 ft 6 in WEIGHT: 162 lb 0 oz DATE OF STUDY: 11/04/[address]: Sean Jauregui MD 2-DIMENSIONAL: YES M.MODE: YES DOPPLER: YES COLOR FLOW: YES TDS: NO PORTABLE: NO DEFINITY: NO BUBBLE STUDY: NO DIAGNOSIS: CONGESTIVE HEART FAILURE/ VENTRICULAR TACHYCARDIA CARDIAC HISTORY: CATHERIZATION: SURGERY: PROSTHETIC VALVE: PACEMAKER: MEASUREMENTS (cm) DIASTOLIC (NORMALS) SYSTOLIC (NORMALS) IVSd 1.3 (0.6-1.2) LA Diam 3.5 (1.9-4.0) LVEF 25-29% LVIDd 5.0 (3.5-5.7) LVIDs 4.6 (2.0-3.5) %FS 8% LVPWd 1.3 (0.6-1.2) Ao Diam 2.4 (2.0-3.7) 2 DIMENSIONAL ASSESSMENT: RIGHT ATRIUM: DILATED LEFT ATRIUM: DILATED RIGHT VENTRICLE: DEFIBRILLATOR CATHETER LEFT VENTRICLE: LEFT VENTRICULAR HYPERTROPHY TRICUSPID VALVE: NORMAL MITRAL VALVE: NORMAL PULMONIC VALVE: NORMAL AORTIC VALVE: SCLEROSIS PERICARDIAL EFFUSION: NONE AORTIC ROOT: NORMAL LEFT VENTRICULAR WALL MOTION: GLOBAL HYPOKINESIS. DOPPLER/COLOR FLOW: MILD AORTIC AND MITRAL REGURGITATION. NO AORTIC STENOSIS. COMMENTS: DEPRESSED LEFT VENTRICULAR EJECTION FRACTION. DILATED LEFT AND RIGHT ATRIUM. DEFIBRILLATOR IN RIGHT VENTRICULAR APEX. LEFT VENTRICULAR HYPERTROPHY. AORTIC SCLEROSIS WITH NO AORTIC STENOSIS. MILD AORTIC AND MITRAL REGURGITATION. TECHNOLOGIST: GENNA TORRES
[2019-11-14] MEDS ORDERED: ATORVASTATIN 40 MG TAB PO SCH (21:00)
== END 2019-11-14 15:31 | disposition home or self-care (01) ==
LOC: ER 15:19 → ERHOLD 18:19 → 4TH 19:33
PROVIDERS: ADMIT Internal Medicine; ATTEND Family Medicine
DX: Z45.02 Encounter for adjustment and management of automatic implantable cardiac defibrillator (principal); I13.0 Hypertensive heart and chronic kidney disease with heart failure and stage 1 through stage 4 chronic kidney disease, or unspecified chronic kidney disease; I50.40 Unspecified combined systolic (congestive) and diastolic (congestive) heart failure; E11.22 Type 2 diabetes mellitus with diabetic chronic kidney disease; N18.3 Chronic kidney disease, stage 3 (moderate); I08.0 Rheumatic disorders of both mitral and aortic valves; Z23 Encounter for immunization; I25.10 Atherosclerotic heart disease of native coronary artery without angina pectoris; I25.2 Old myocardial infarction; E78.5 Hyperlipidemia, unspecified; Z79.4 Long term (current) use of insulin; Z79.82 Long term (current) use of aspirin; Z79.899 Other long term (current) drug therapy; Z95.1 Presence of aortocoronary bypass graft; Z95.5 Presence of coronary angioplasty implant and graft; Z87.891 Personal history of nicotine dependence; Z86.73 Personal history of transient ischemic attack (TIA), and cerebral infarction without residual deficits
CPT/HCPCS: 93005; 93306; 85025; 80048; 36415; 83735; 85610; 80061; 82947 ×4; 80076; 84484 ×3; 83880; 87804 ×2; 71045; 90471; 94760; 99285; J1940 ×2; Q2035; J1642; G0378 ×3

== ENCOUNTER 2019-11-28 08:41 | Emergency (ER) | payer OTHER ==
[2019-11-28 09:13] LABS: Urine Blood 2+ (NEG); Urine Glucose NEGATIVE (NEG); Urine Protein 1+ (NEG)
[2019-11-28 09:31] LABS: Absolute Lymphocytes (CBC) 2.2 K/uL (0.7-4.9); Basophils % 0.3 % (0-1.3); Hematocrit 35.4 % (39.6-49.0); Lymphocytes % 28.9 % (15.3-44.8); MPV 8.3 fL (7.6-11.3); RBC Red Blood Cell Count 4.06 M/uL (4.33-5.43)
--- OUTSIDE RECORDS SUMMARY | 2019-11-28 09:32 | XMS REPORT ---
:1945 [facility] Address [address] [place] [address] Care Team Providers Name Role Phone TASHA [...] (BEAKER) (test 325 mg/dL 70-110 TESTED AT [facility] [address] mrvx=[id number]) [facility] [address] POCT-GLUCOSE [id number] 07:37:00 Test Item Value Reference Range Comments POC-GLUCOSE METER (BEAKER) 134 mg/dL 70-110 TESTED AT [facility] [address] [facility] (test zxxi=4623) [facility] [address] [id number] 04:53:00 Test Item Value Reference Range Comments BLOOD UREA NITROGEN (BEAKER) (test sllk=828) 40 mg/dL 7-21 [id number] 04:53:00 Test Item Value Reference Range Comments SODIUM (BEAKER) (test lyvy=778) 138 meq/L 136-145 POTASSIUM (BEAKER) (test vnmt=681) 5.0 meq/L 3.5-5.1 CHLORIDE (BEAKER) (test ladf=917) 106 meq/L 98-107 CO2 (BEAKER) (test pryi=612) 23 meq/L 22-29 [id number] 04:53:00 Test Item Value Reference Range Comments CREATININE (BEAKER) (test 1.81 mg/dL 0.57-1.25 dipa=295) EGFR (BEAKER) (test 37 mL/min/1.73 sq m ESTIMATED GFR IS NOT choe=7097) ACCURATE CREATININE CLEARANCE IN PREDICTING GLOMERULAR FILTRATION RATE. ESTIMATED GFR IS NOT APPLICABLE FOR DIALYSIS PATIENTS. POCT-GLUCOSE [id number] 22:29:00 Test Item Value Reference Range Comments POC-GLUCOSE METER ([facility]) 156 mg/dL 70-110 TESTED AT [address] (test tnaq=1091) [place] [address] HEMOGLOBIN AND [id number] 18:49:00 Test Item Value Reference Range Comments HEMOGLOBIN ([facility]) (test oooi=712) 10.4 GM/DL 13.7-17.5 HEMATOCRIT ([facility]) (test fclo=804) 32.1 % 40.1-51.0 POCT-GLUCOSE [id number] 16:14:00 Test Item Value Reference Range Comments POC-GLUCOSE METER ([facility]) 167 mg/dL 70-110 TESTED AT [address] (test hpya=6538) [place] [address] [id number] 14:38:00 Test Item Value Reference Range Comments ACTIVATED CLOTTING TIME 164 sec TESTED AT [address] ([facility]) (test yejd=355) [place] [address] [id number] 13:42:00 Test Item Value Reference Range Comments ACTIVATED CLOTTING TIME 169 sec TESTED AT [address] ([facility]) (test nnnt=387) [place] [address] [id number] 12:54:00 Test Item Value Reference Range Comments ACTIVATED CLOTTING TIME 307 sec TESTED AT [address] ([facility]) (test ihnq=892) [place] [address] [id number] 12:54:00 Test Item Value Reference Range Comments ACTIVATED CLOTTING TIME 312 sec TESTED AT [address] ([facility]) (test eeus=956) [place] [address] [id number] 11:45:00 Test Item Value Reference Range Comments ACTIVATED CLOTTING TIME 301 sec TESTED AT [address] ([facility]) (test ypet=126) [place] [address] [id number] 11:45:00 Test Item Value Reference Range Comments ACTIVATED CLOTTING TIME 307 sec TESTED AT [address] ([facility]) (test evxf=542) [place] [address] [id number] 11:45:00 Test Item Value Reference Range Comments ACTIVATED CLOTTING TIME 301 sec TESTED AT [place] [address] [address] (BEAKER) (test ngnn=670) [place] [id number] 11:45:00 Test Item Value Reference Range Comments ACTIVATED CLOTTING TIME 312 sec TESTED AT [place] [address] [address] (BEAKER) (test roiy=369) [place] [address] [id number] 11:45:00 Test Item Value Reference Range Comments ACTIVATED CLOTTING TIME 268 sec TESTED AT [address] (BEAKER) (test ioks=132) [place] [address] [id number] 11:45:00 Test Item Value Reference Range Comments ACTIVATED CLOTTING TIME 202 sec TESTED AT [address] (BEAKER) (test nmpr=581) [place] [address] PROTHROMBIN [id number] 06:50:00 Test Item Value Reference Range Comments PROTIME (BEAKER) (test cnbm=833) 13.8 seconds 11.7-14.7 INR ([facility]) (test vnoa=896) 1.1 <=5.9 RECOMMENDED COUMADIN/WARFARIN INR THERAPY RANGESSTANDARD DOSE: 2.0 - 3.0 Includes: PROPHYLAXIS forvenous thrombosis, systemic embolization; TREATMENT for venous thrombosis and/or pulmonary embolus.HIGH RISK: Target INR is 2.5-3.5 for patients with mechanical heart valves.[id number] 06:50:00 Test Item Value Reference Range Comments PARTIAL THROMBOPLASTIN TIME (BEAKER) (test 28.6 seconds 22.5-36.0 blem=383) COMPREHENSIVE METABOLIC [id number] 06:45:00 Test Item Value Reference Range Comments TOTAL PROTEIN (BEAKER) 7.8 gm/dL 6.0-8.3 (test gzqa=762) ALBUMIN (BEAKER) (test 4.0 g/dL 3.5-5.0 eqhj=7969) ALKALINE PHOSPHATASE 122 U/L 40-150 (BEAKER) (test sxhv=032) BILIRUBIN TOTAL (BEAKER) 0.4 mg/dL 0.2-1.2 (test zlmt=149) SODIUM (BEAKER) (test 138 meq/L 136-145 yyfz=695) POTASSIUM (BEAKER) (test 5.4 meq/L 3.5-5.1 tjbw=463) CHLORIDE (BEAKER) (test 100 meq/L 98-107 gpar=962) CO2 (BEAKER) (test 27 meq/L 22-29 koge=213) BLOOD UREA NITROGEN 55 mg/dL 7-21 (BEAKER) (test bswq=537) CREATININE (BEAKER) (test 2.39 mg/dL 0.57-1.25 bzjy=025) GLUCOSE RANDOM (BEAKER) 252 mg/dL 70-105 (test fwqx=658) CALCIUM (BEAKER) (test 9.7 mg/dL 8.4-10.2 qamu=989) AST (SGOT) (BEAKER) (test 19 U/L 5-34 dpjb=348) ALT (SGPT) (BEAKER) (test 25 U/L 6-55 kpln=368) EGFR (BEAKER) (test 27 mL/min/1.73 sq m ESTIMATED GFR IS NOT bntf=7297) ACCURATE CREATININE CLEARANCE IN PREDICTING GLOMERULAR FILTRATION RATE. ESTIMATED GFR IS NOT APPLICABLE FOR DIALYSIS PATIENTS. [id number] 06:44:00 Test Item Value Reference Range Comments MAGNESIUM (BEAKER) (test pkve=656) 2.4 mg/dL 1.6-2.6 CBC W/PLT COUNT & AUTO [id number] 06:40:00 Test Item Value Reference Range Comments WHITE BLOOD CELL COUNT (BEAKER) (test lqpb=536) 8.0 K/ L 3.5-10.5 RED BLOOD CELL COUNT (BEAKER) (test xonl=056) 3.66 M/ L 4.63-6.08 HEMOGLOBIN (BEAKER) (test xzvw=999) 11.1 GM/DL 13.7-17.5 HEMATOCRIT (BEAKER) (test ajgi=390) 34.1 % 40.1-51.0 MEAN CORPUSCULAR VOLUME (BEAKER) (test wvxp=834) 93.2 fL 79.0-92.2 MEAN CORPUSCULAR HEMOGLOBIN (BEAKER) (test 30.3 pg 25.7-32.2 cqpe=225) MEAN CORPUSCULAR HEMOGLOBIN CONC (BEAKER) (test 32.6 GM/DL 32.3-36.5 rpnj=239) RED CELL DISTRIBUTION WIDTH (BEAKER) (test 14.3 % 11.6-14.4 cwfa=947) PLATELET COUNT (BEAKER) (test ziyp=340) 191 K/CU MM 150-450 MEAN PLATELET VOLUME (BEAKER) (test joob=273) 10.6 fL 9.4-12.4 NUCLEATED RED BLOOD CELLS (BEAKER) (test 0 /100 WBC 0-0 bzzo=970) NEUTROPHILS RELATIVE PERCENT (BEAKER) (test 56 % djbj=238) LYMPHOCYTES RELATIVE PERCENT (BEAKER) (test 35 % yehi=590) MONOCYTES RELATIVE PERCENT (BEAKER) (test 7 % zqgp=139) EOSINOPHILS RELATIVE PERCENT (BEAKER) (test 1 % bofy=410) BASOPHILS RELATIVE PERCENT (BEAKER) (test 1 % pbqi=361) NEUTROPHILS ABSOLUTE COUNT (BEAKER) (test 4.47 K/ L 1.78-5.38 blcv=815) LYMPHOCYTES ABSOLUTE COUNT (BEAKER) (test 2.82 K/ L 1.32-3.57 kpkn=918) MONOCYTES ABSOLUTE COUNT (BEAKER) (test 0.54 K/ L 0.30-0.82 ddtt=704) EOSINOPHILS ABSOLUTE COUNT (BEAKER) (test 0.09 K/ L 0.04-0.54 soad=116) BASOPHILS ABSOLUTE COUNT (BEAKER) (test 0.04 K/ L 0.01-0.08 atoc=838) IMMATURE GRANULOCYTES-RELATIVE PERCENT (BEAKER) 1 % 0-1 (test cnqz=5795)
[2019-11-28 09:37] LABS: Urine Bacteria <20 /HPF (NONE SEEN); Urine Culture Reflex Order NOT NEEDED; Urine Urothelial Cells <5 /HPF (NONE SEEN)
[2019-11-28 09:47] LABS: Bilirubin Direct 0.1 mg/dL (0-0.2); Bilirubin Total 0.4 mg/dL (0.2-1.0); Potassium 4.6 mmol/L (3.5-5.1); Protein, Total 7.5 g/dL (6.4-8.2)
--- NOTE | 2019-11-28 09:54 | RAD REPORT ---
EXAM DESCRIPTION: CT - Stone Protocol - 11/28/2019 9:28 am CLINICAL HISTORY: FLANK PAIN, right side ; history of pancreatic and gastric carcinoma COMPARISON: Chest Single View dated 11/13/2019; Ribs Right dated 11/08/2019 TECHNIQUE: Axial [address] imaging of the abdomen and pelvis was performed without IV contrast. No IV contrast was given because of allergy, abnormal renal function, patient refusal or physician re quest. Oral contrast was given. All CT scans are performed using dose optimization technique as appropriate and may include automated exposure control or mA/KV adjustment according to patient size. FINDINGS: Heart size is upper normal. No pericardial thickening or effusion seen. Patient has extens moose interstitial and alveolar opacification in both lung bases. Air bronchograms are seen. No endobro nchial lesion identifiable. No pneumothorax. Trace pleural fluid on the left. Lung parenchymal patter n is similar to the November 12 study. This has a bilateral lung base pneumonia appearance but could ind icate very extensive chronic lung disease the patient has no acute respiratory symptoms. A 2.5 centimeter round low-density focus is present in the subcapsular dome right lobe of the liver. This does not meet simple cyst criteria on a noncontrast study. With a history of malignancy, a metas tatic lesion cannot be excluded. No comparison exams available. No other liver lesions identified on a noncontrast exam. No splenomegaly or focal splenic finding. No pancreatic mass is evident. The pancreatic tissue is iso dense. No peripancreatic stranding. No surgical clips are seen. Several gallstones are seen in the no rmal size gallbladder. No wall thickening or edema. No biliary tree dilatation. No hydronephrosis or obstructing calculus in either kidney. A 15 millimeter exophytic isodense mass p osterior lower pole right kidney is present. This is typically a complex cyst. Comparison would be he lpful. Patient has asymmetric nonspecific perinephric stranding pattern. No significant adrenal find ing. Isodense renal masses and pyelonephritis cannot be excluded in the absence of IV contrast. Urina ry bladder is mostly contracted limiting detail. No dilated bowel loops or bowel wall thickening. Rectosigmoid anastomotic site shows no suspicious fi nding. No acute GI process evident. No gastric wall thickening or mass. No outlet obstruction. No tom e air, free fluid or inflammatory stranding. No hernia, mass or bulky lymphadenopathy. Disc and bony degenerative changes are present. No pathologic bone process seen. Slight wedging of th e L1 body is not believed to be acute. Dense arterial tree calcifications are present. IMPRESSION: Extensive interstitial and alveolar opacifications in both lung bases. This has the appe arance of bilateral lung base pneumonia. Lung base findings are similar to the November 12 study. In the absence of any acute respiratory infecti ous symptoms is could be extensive chronic lung disease. Patient does not have far remote imaging for comparison. Provided history indicates gastric and pancreatic cancer. No gastric or pancreatic masses are evident and no abnormal lymphadenopathy or other central abdomen acute finding. A 2.5 centimeter low-density rounded mass subcapsular dome right lobe of the liver does not meet simp le cyst criteria. Metastatic lesion cannot be excluded if the pancreatic in gastric cancer history is correct. There is no hydronephrosis or obstructing calculus. Exophytic 15 millimeter isodense mass lower pole right kidney may be a complex cyst but needs comparison no prior imaging or monitoring on follow-up e xam. Cholelithiasis without evidence for acute cholecystitis.
--- NOTE | 2019-11-28 10:29 | EDPHYS ---
Physician Documentation [facility] Name: Rick Zheng Age: 74 yrs Sex: Male : 1945 Arrival Date: 11/28/2019 Time: 08:44 Bed 6 Private MD: ELIZABETH Physician Bin Garza HPI: 11/27 09:38 This 74 yrs old Male presents to ER via Ambulatory with complaints of Kidney pm1 Problem. 09:38 The patient presents with pain. The symptoms are located in the low back. Onset: The pm1 symptoms/episode began/occurred 1 month(s) ago. The pain does not radiate. Associated signs and symptoms: The patient has no apparent associated signs or symptoms, Pertinent negatives: abdominal pain, chest pain, fever, numbness, vomiting, diarrhea. The problem was sustained from unknown cause. Modifying factors: The patient symptoms are alleviated by nothing, the patient symptoms are aggravated by nothing. Historical: - Allergies: 08:57 No Known Allergies; jl7 - Home Meds: 08:57 amiodarone 200 mg Oral tab 1 tab once daily [Active]; aspirin 81 mg Oral TbEC 1 tab jl7 once daily [Active]; atorvastatin 40 mg Oral tab 1 tab once daily [Active]; Chemotherapy [Active]; Levaquin 500 mg Oral tab 1 tab once daily [Active]; lisinopril 5 mg Oral tab 1 tab once daily [Active]; metoprolol succinate 100 mg Oral Tb24 1 tab once daily [Active]; spironolactone 25 mg Oral tab 1 tab once daily [Active]; torsemide 20 mg Oral tab 1 tab once daily [Active]; - PMHx: 08:57 CVA; Myocardial infarction; Pancreatic and stomach cancer; jl7 - PSHx: 08:57 Pacemaker; Triple bypass; Heart stents; jl7 - Immunization history:: Adult Immunizations up to date. - Social history:: Smoking status: Patient denies any tobacco usage or history of. ROS: 09:38 Constitutional: Negative for fever, chills, and weight loss, Cardiovascular: Negative pm1 for chest pain, palpitations, and edema, Respiratory: Negative for shortness of breath, cough, wheezing, and pleuritic chest pain. 09:38 Abdomen/GI: Negative for abdominal pain, nausea, vomiting, diarrhea, and constipation. 09:38 : Negative for injury, bleeding, discharge, and swelling, MS/Extremity: Negative for injury and deformity, Skin: Negative for injury, rash, and discoloration. 09:38 Back: Positive for of the low back area, pain. 09:38 All other systems are negative. Exam: 09:38 Constitutional: This is a well developed, well nourished patient who is awake, alert, pm1 and in no acute distress. Chest/axilla: Normal chest wall appearance and motion. Nontender with no deformity. No lesions are appreciated. Cardiovascular: Regular rate and rhythm with a normal S1 and S2. No gallops, murmurs, or rubs. No pulse deficits. Respiratory: Lungs have equal breath sounds bilaterally, clear to auscultation and percussion. No rales, rhonchi or wheezes noted. No increased work of breathing, no retractions or nasal flaring. Abdomen/GI: Soft, non-tender, with normal bowel sounds. No distension or tympany. No guarding or rebound. No evidence of tenderness throughout. 09:38 Skin: Warm, dry with normal turgor. Normal color with no rashes, no lesions, and no evidence of cellulitis. MS/ Extremity: Pulses equal, no cyanosis. Neurovascular intact. Full, normal range of motion. 09:38 Back: pain, that is mild, of the left low back and right low back, vertebral tenderness, is not appreciated. 09:38 Neuro: Exam negative for acute changes, Orientation: is normal, Mentation: is normal, Motor: moves all fours. Vital Signs: 08:54 BP 169 / 85; Pulse 79; Resp 17 S; Temp 97.5(TE); Pulse Ox 96% on R/A; Weight 72.57 kg 7 (R); Height 5 ft. 6 in. (167.64 cm) (R); Pain 10/10; 10:14 BP 130 / 67; Pulse 80; Resp 18; Pulse Ox 98% ; sv 08:54 Body Mass Index 25.82 (72.57 kg, 167.64 cm) 7 MDM: 08:49 Patient medically screened. pm1 10:28 Data reviewed: vital signs. Data interpreted: Pulse oximetry: on room air is 98 %. pm1 Interpretation: normal. Counseling: I had a detailed discussion with the patient and/or guardian regarding: the historical points, exam findings, and any diagnostic results supporting the discharge/admit diagnosis, lab results, radiology results, the need for outpatient follow up, a family practitioner, to return to the emergency department if symptoms worsen or persist or if there are any questions or concerns that arise at home. 10:28 ED course: Patient was admitted here on 11/13/2019 and discharged on 11/14/2019 for pm1 possible discharge of his ICD. Interrogation showed no abnormalities and patient was evaluated by cardiology. No pneumonia was suspected on discharge from the hospital and the lung base findings on today's CT are similar to November 12 study. Radiologist impression of CT is likely chronic lung disease absent acute respiratory symptoms. Patient reports pain present for 1 month and reports more so on right flank area. Patient not aware of history of cholelithiasis. Possible cause for right flank pain. No abdominal tenderness, N/V/D. Patient discharged home to follow up with PCP. 10:28 Data reviewed: old medical records, Hospitalist and consultation noted from admission pm1 on 11/13/2019. 11/27 09:00 Order name: Basic Metabolic Panel; Complete Time: 09:48 pm11/27 09:00 Order name: CBC with Diff; Complete Time: 09:34 pm11/27 09:00 Order name: Creatinine for Radiology; Complete Time: 09:48 pm11/27 09:00 Order name: Hepatic Function; Complete Time: 09:48 pm11/27 09:00 Order name: Lipase; Complete Time: 09:48 pm1 11/27 09:00 Order name: Urine Microscopic Only; Complete Time: 09:40 pm11/27 09:00 Order name: IV Saline Lock; Complete Time: 09:22 pm11/27 09:00 Order name: Labs collected and sent; Complete Time: 09:22 pm11/27 09:00 Order name: CT Stone Protocol; Complete Time: 10:25 pm11/27 09:00 Order name: Urine Dipstick-Ancillary (obtain specimen); Complete Time: 09:22 pm11/27 09:05 Order name: Urine Dipstick--Ancillary (enter results); Complete Time: 09:34 bd Administered Medications: 10:41 Drug: traMADol 50 mg Route: PO; sv 10:41 Follow up: Response: No adverse reaction sv Disposition: 17:16 Co-signature as Attending Physician, Bin Garza MD I agree with the assessment and [facility] plan of care. Disposition: 11/28/19 10:28 Discharged to Home. Impression: Low back pain, Cholelithiasis. - Condition is Stable. - Discharge Instructions: Back Pain, Adult, Musculoskeletal Pain, Cholelithiasis. - Prescriptions for Ultracet 37.5- 325 mg Oral Tablet - take 1 tablet by ORAL route every 8 hours As needed; 12 tablet. - Medication Reconciliation Form, Thank You Letter, Antibiotic Education, Prescription Opioid Use form. - Follow up: Emergency Department; When: As needed; Reason: Worsening of condition. Follow up: Private Physician; When: 2 - 3 days; Reason: Recheck today's complaints, Continuance of care, Re-evaluation by your physician. - Problem is new. - Symptoms have improved. Signatures: Dispatcher [employer] EDMS Dorcas Amador RN Bin Brown MD MD cha Marinas, Patrick, LAMINATING MACHINE FEEDER LAMINATING MACHINE FEEDER pm1 Lesley Paulson RN RN jl7 Corrections: (The following items were deleted from the chart) 10:30 10:28 11/28/2019 10:28 Discharged to Home. Impression: Low back pain. Condition is pm1 Stable. Forms are Medication Reconciliation Form, Thank You Letter, Antibiotic Education, Prescription Opioid Use. Follow up: Emergency Department; When: As needed; Reason: Worsening of condition. Follow up: Private Physician; When: 2 - 3 days; Reason: Recheck today's complaints, Continuance of care, Re-evaluation by your physician. Problem is new. Symptoms have improved. pm1 11:13 10:30 11/28/2019 10:28 Discharged to Home. Impression: Low back pain; Cholelithiasis. sv Condition is Stable. Forms are Medication Reconciliation Form, Thank You Letter, Antibiotic Education, Prescription Opioid Use. Follow up: Emergency Department; When: As needed; Reason: Worsening of condition. Follow up: Private Physician; When: 2 - 3 days; Reason: Recheck today's complaints, Continuance of care, Re-evaluation by your physician. Problem is new. Symptoms have improved. pm1
--- NOTE | 2019-11-28 10:29 | ER ---
Nurse's Notes [facility] Name: Rick Zheng Age: 74 yrs Sex: Male : 1945 Arrival Date: 11/28/2019 Time: 08:44 Bed 6 Private MD: Diagnosis: Low back pain;Cholelithiasis Presentation: 11/27 08:54 Chief complaint: Patient states: right flank pain x 1 month; denies urinary symptoms; jl7 denies fever and cough. Coronavirus screen: Patient denies fever greater than 100.4F, cough, shortness of breath, or difficulty breathing. Proceed with normal triage process. Ebola Screen: No symptoms or risks identified at this time. Initial Sepsis Screen: Does the patient meet any 2 criteria? No. Patient's initial sepsis screen is negative. Does the patient have a suspected source of infection? No. Patient's initial sepsis screen is negative. Risk Assessment: Do you want to hurt yourself or someone else? Patient reports no desire to harm self or others. Onset of symptoms was October 2019. 08:54 Method Of Arrival: Ambulatory jl7 08:54 Acuity: KELVIN 3 jl7 Triage Assessment: 08:57 General: Appears in no apparent distress. uncomfortable, Behavior is calm, cooperative, jl7 appropriate for age. Pain: Complains of pain in right flank Pain currently is 10 out of 10 on a pain scale. Neuro: Level of Consciousness is awake, alert, obeys commands, Oriented to person, place, time, situation. Cardiovascular: Patient's skin is warm and dry. Respiratory: Airway is patent Respiratory effort is even, unlabored, Respiratory pattern is regular, symmetrical. : No signs and/or symptoms were reported regarding the genitourinary system. Denies burning with urination, pain. Derm: Skin is pink, warm \T\ dry. Historical: - Allergies: 08:57 No Known Allergies; jl7 - Home Meds: 08:57 amiodarone 200 mg Oral tab 1 tab once daily [Active]; aspirin 81 mg Oral TbEC 1 tab jl7 once daily [Active]; atorvastatin 40 mg Oral tab 1 tab once daily [Active]; Chemotherapy [Active]; Levaquin 500 mg Oral tab 1 tab once daily [Active]; lisinopril 5 mg Oral tab 1 tab once daily [Active]; metoprolol succinate 100 mg Oral Tb24 1 tab once daily [Active]; spironolactone 25 mg Oral tab 1 tab once daily [Active]; torsemide 20 mg Oral tab 1 tab once daily [Active]; - PMHx: 08:57 CVA; Myocardial infarction; Pancreatic and stomach cancer; jl7 - PSHx: 08:57 Pacemaker; Triple bypass; Heart stents; jl7 - Immunization history:: Adult Immunizations up to date. - Social history:: Smoking status: Patient denies any tobacco usage or history of. Screenin:59 Abuse screen: Denies threats or abuse. Denies injuries from another. Nutritional jl7 screening: No deficits noted. Tuberculosis screening: No symptoms or risk factors identified. Fall Risk IV access (20 points). Ambulatory Aid- Crutches/Cane/Walker (15 pts). Total Biggs Fall Scale indicates Low Risk Score (25-44 pts). Fall prevention measures have been instituted. Side Rails Up X 2 Placed close to Nursing Station Frequent Obs/Assesments occuring As available Patient and Family Educated on Fall Prevention Program and strategies. Assessment: 08:59 General: see triage assessment. jl7 10:02 Reassessment: Patient appears in no apparent distress at this time. Patient and/or ca1 family updated on plan of care and expected duration. Pain level reassessed. Patient is alert, oriented x 3, equal unlabored respirations, skin warm/dry/pink. Vital Signs: 08:54 BP 169 / 85; Pulse 79; Resp 17 S; Temp 97.5(TE); Pulse Ox 96% on R/A; Weight 72.57 kg jl7 (R); Height 5 ft. 6 in. (167.64 cm) (R); Pain 10/10; 10:14 BP 130 / 67; Pulse 80; Resp 18; Pulse Ox 98% ; sv 08:54 Body Mass Index 25.82 (72.57 kg, 167.64 cm) jl7 ED Course: 08:44 Patient arrived in ED. ag5 08:47 Lesley Paulson, ROMULO is Primary Nurse. jl7 08:49 Jose Pérez NP is PHCP. pm1 08:49 Bin Garza MD is Attending Physician. pm1 08:56 Triage completed. jl7 08:57 Arm band placed on right wrist. jl7 08:59 Patient has correct armband on for positive identification. Bed in low position. Call [facility] light in reach. Side rails up X 1. Pulse ox on. NIBP on. 09:00 Accessed Port-a-Cath. using accessed w/ # 20 [place] needle, ,sterile technique, per [address] protocol. Clean \T\ dry. Good blood return. Flushes easily. 09:32 CT Stone Protocol In Process Unspecified. EDMS 10:42 No provider procedures requiring assistance completed. sv 10:55 IV discontinued, intact, bleeding controlled, No redness/swelling at site. Pressure sv dressing applied. Administered Medications: 10:41 Drug: traMADol 50 mg Route: PO; sv 10:41 Follow up: Response: No adverse reaction sv Outcome: 10:28 Discharge ordered by . pm1 10:42 Discharged to home ambulatory, with his cane sv 10:42 Condition: stable 10:42 Discharge instructions given to patient, Instructed on discharge instructions, follow up and referral plans. medication usage, Demonstrated understanding of instructions, follow-up care, medications, Prescriptions given X 1. 11:13 Patient left the ED. sv Signatures: Dispatcher [employer] EDMS Dorcas Amador, RN RN sv Jose Pérez, ASSOCIATE GENETICS PROFESSOR ASSOCIATE GENETICS PROFESSOR pm1 Lesley Paulson RN RN jl7 Sahara Turner RN RN ca1 Pancho Crowe ag5
[2019-11-28] MEDS ORDERED: TRAMADOL HCL 50 MG TAB ONE (10:40)
[2019-11-28] MEDS ORDERED: HEPARIN 500 UNIT/5 ML SYR IV ONE ×2 (10:51)
[2019-11-28] MEDS ORDERED: MAGNESIUM SULFATE 1 gm IVPB 1 GM/100 ML BAG IV ONE (11:15)
[2019-11-28 11:19] VITALS: TEMP 97.5
[2019-11-28 11:21] VITALS: BP 130/67; O2SAT 98
== END 2019-11-28 11:13 | disposition home or self-care (01) ==
LOC: ER 08:41
DX: K80.20 Calculus of gallbladder without cholecystitis without obstruction (principal); I25.2 Old myocardial infarction; Z79.82 Long term (current) use of aspirin; Z95.0 Presence of cardiac pacemaker; Z95.818 Presence of other cardiac implants and grafts; Z85.07 Personal history of malignant neoplasm of pancreas; Z85.028 Personal history of other malignant neoplasm of stomach; Z95.1 Presence of aortocoronary bypass graft
CPT/HCPCS: 85025; 80048; 36415; 80076; 83690; 76377; 74176; 99284; J3475; J1642 ×2; 81003; 81015